=== PATIENT | female | born 1955 | race Caucasian/White ===

== ENCOUNTER 2017-01-13 13:19 | Emergency (ER) | payer MEDICARE, OTHER ==
[2017-01-13 13:26] VITALS: BMI 31.7
[2017-01-13 13:27] VITALS: BP 136/87; PULSE 115; RESP 18; TEMP 98; O2SAT 98
[2017-01-13] MEDS ORDERED: Sodium Chloride 0.9% 1,000 ML IV STA (13:51)
--- NOTE | 2017-01-13 13:54 | ED PDOC ---
HPI: General Adult Time Seen by Provider: 01/13/17 13:34 Chief Complaint (Nursing): Dizziness/Lightheaded Chief Complaint (Provider): Dizziness/Lightheaded History Per: Patient History/Exam Limitations: no limitations Onset/Duration Of Symptoms: Days (x4 days) Current Symptoms Are (Timing): Still Present Additional Complaint(s): 61 y/o female presents to the emergency department with a complaint of dizziness , diarrhea, headache, vomiting, shoulder pain bilaterally, loss of appetite, and trouble with urination x4 days. Patient states she was in [place] and came back on 01/09/2017 but forget her insulin over there and has not used insulin since. Reports she takes her insulin every night before bed and checks her blood sugar in the morning. Denies fever and dysuria. PMD: Dr. Karlene Rosen MD Past Medical History Reviewed: Historical Data, Nursing Documentation, Vital Signs Vital Signs: Last Vital Signs Temp 98.0 F 01/13/17 13:23 Pulse 115 H 01/13/17 13:23 Resp 18 01/13/17 13:23 BP 136/87 01/13/17 13:23 Pulse Ox 98 01/13/17 14:08 - Medical History PMH: COPD, Diabetes, HTN, Hypercholesterolemia, Seizures - Surgical History Surgical History: Cholecystectomy Other surgeries: Brain surgery and hysterectomy - Family History Family History: States: Unknown Family Hx - Social History Current smoker - smoking cessation education provided: Yes (Light smoker < 10 cigarettes a day) Alcohol: None Drugs: Denies - Home Medications Home Medications: Ambulatory Orders Medication Instructions Recorded Cetirizine Hydrochloride [Zyrtec] 10 mg PO DAILY 08/17/14 Fluticasone Nasal [Flonase] 2 spray HANSA DAILY 08/17/14 Lansoprazole [Prevacid] 30 mg PO DAILY 08/17/14 Metformin Hydrochloride/Manuela 1 tab PO BID 08/17/14 [Janumet 1000 mg-50 mg] Mometasone/Formoterol [Dulera] 2 puff IH BID 08/17/14 Montelukast Sodium [Singulair] 10 mg PO DAILY 08/17/14 Nortriptyline HCl [Nortriptyline] 20 mg PO BID 08/17/14 Nortriptyline Hydrochloride 50 mg PO HS 08/17/14 [Nortriptyline] OXcarbazepine [Trileptal] 300 mg PO DAILY 08/17/14 Tramadol HCl [Ultram] 50 mg PO BID PRN #15 tablet 03/13/16 - Allergies Allergies/Adverse Reactions: Allergies Allergy/AdvReac Type Severity Reaction Status Date / Time codeine Allergy RASH Verified 01/13/17 13:38 Review of Systems ROS Statement: Except As Marked, All Systems Reviewed And Found Negative Constitutional: Positive for: Other (Loss of appetite). Negative for: Fever Gastrointestinal: Positive for: Vomiting, Diarrhea Genitourinary Female: Positive for: Other (Trouble urinating). Negative for: Dysuria Musculoskeletal: Positive for: Shoulder Pain Neurological: Positive for: Headache, Dizziness Physical Exam - Reviewed Nursing Documentation Reviewed: Yes Vital Signs Reviewed: Yes - Physical Exam Appears: Positive for: Non-toxic, No Acute Distress Head Exam: Positive for: ATRAUMATIC, NORMAL INSPECTION, NORMOCEPHALIC Skin: Positive for: Normal Color, Warm, Dry ENT: Positive for: Normal ENT Inspection. Negative for: Nasal Congestion Neck: Positive for: Normal, Supple Cardiovascular/Chest: Positive for: Regular Rate, Rhythm. Negative for: Murmur Respiratory: Positive for: Normal Breath Sounds. Negative for: Accessory Muscle Use, Respiratory Distress Lymphatic: Positive for: Normal Exam. Negative for: Adenopathy Neurologic/Psych: Positive for: Alert, Oriented - Laboratory Results Result Diagrams: 01/13/17 14:10 01/13/17 14:10 - ECG O2 Sat by Pulse Oximetry: 98 (RA) Pulse Ox Interpretation: Normal Medical Decision Making Medical Decision Making: Time: 13:34 Initial impression: Dizziness and vomiting status post non-use of insulin Initial plan: --Basic Metabolic Panel --ED urine dipstick (POC) --CBC w. differential --Toradol 30 mg IV --Sodium Chloride 1,000 ml IV 1,000 mls/hr --IV Insertion --AccuCheck: 284 --Revaluation Scribe Attestation: Documented by Priya Guerin, acting as a scribe for Cady Bernstein MD. Provider Scribe Attestation: All medical record entries made by the Scribe were at my direction and personally dictated by me. I have reviewed the chart and agree that the record accurately reflects my personal performance of the history, physical exam, medical decision making, and the department course for this patient. I have also personally directed, reviewed, and agree with the discharge instructions and disposition. Disposition - Clinical Impression Clinical Impression: Diabetes - Patient ED Disposition Is Patient to be Admitted: No Doctor Will See Patient In The: Office Counseled Patient/Family Regarding: Diagnosis, Need For Followup, Rx Given - Disposition Referrals: Karlene Rosen MD [Family Provider] - Disposition: Routine/Home Disposition Time: 14:54 Condition: IMPROVED Instructions: Diabetes Mellitus Type 2 in Adults (ED) - POA Present On Arrival: None
[2017-01-13 14:29] LABS: BASO # 0.1 K/uL (0.0-0.2); BASO % 0.6 % (0.0-2.0); EOS # 0.2 K/uL (0.0-0.7); EOS % 2.2 % (0.0-4.0); HEMATOCRIT 45.6 % (34.0-47.0); LYMPH # 2.4 K/uL (1.0-4.3); LYMPH % 21.6 % (20.0-40.0); MEAN CELL VOLUME 85.2 fl (81.0-99.0); MEAN CORPUSCULAR HEMOGLOBIN 28.9 pg (27.0-31.0); MEAN CORPUSCULAR HGB CONC 33.9 g/dL (33.0-37.0); MEAN PLATELET VOLUME 9.8 fl (7.2-11.7); MONO # 0.6 K/uL (0.0-0.8); MONO % 5.6 % (0.0-10.0); NEUT # 7.7 K/uL (1.8-7.0); NRBC % 0.1 % (0.0-0.0); RED CELL DISTRIBUTION WIDTH 14.6 % (11.5-14.5)
[2017-01-13 14:46] LABS: BLOOD UREA NITROGEN 12 mg/dl (7-17); CALCIUM 9.3 mg/dL (8.4-10.2); CARBON DIOXIDE 24 mmol/L (22-30); CHLORIDE 103 mmol/L (98-107); GFR AFRICAN-AMERICAN > 60; GLUCOSE,RANDOM 262 mg/dL (65-105); POTASSIUM 4.4 MMOL/L (3.6-5.0); SODIUM 137 mmol/l (132-148)
== END 2017-01-13 15:17 | disposition home or self-care (01) ==
LOC: H.ER 13:19
DX: R42 Dizziness and giddiness (principal); R11.10 Vomiting, unspecified; E11.9 Type 2 diabetes mellitus without complications
CPT/HCPCS: 80048; 82948; 85025; 96374; 99285; J1885; J7040

== ENCOUNTER 2017-08-25 15:43 | Emergency (ER) | payer MEDICARE, OTHER ==
[2017-08-25 15:43] VITALS: BMI 31.7
[2017-08-25 15:55] VITALS: BP 131/87; PULSE 96; TEMP 98.1; O2SAT 97
[2017-08-25 16:14] VITALS: RESP 20
[2017-08-25] MEDS ORDERED: Albuterol-Ipratrop 3 mg / 0.5 (3 ml) UD IH STA ×2 (16:20→17:15)
--- NOTE | 2017-08-25 16:25 | ED PDOC ---
HPI: SOB/CHF/COPD Time Seen by Provider: 08/25/17 16:11 Chief Complaint (Nursing): Shortness Of Breath History Per: Patient Onset/Duration Of Symptoms: Other (2 weeks) Current Symptoms Are (Timing): Still Present Current Respiratory Medications: See Home Med List Severity: Mild Pain Scale Rating Of: 3 Associated Symptoms: Fever, Productive Cough Additional Complaint(s): SOB and cough productive white sputum x 2 weeks assoc with SOB. Denies chest pain or vomiting. No improvement with inhalers. Past Medical History Vital Signs: Last Vital Signs Temp 98.1 F 08/25/17 15:53 Pulse 96 H 08/25/17 15:53 Resp 20 08/25/17 16:13 BP 131/87 08/25/17 15:53 Pulse Ox 97 08/25/17 16:25 - Medical History PMH: COPD, Diabetes, HTN, Hypercholesterolemia, Seizures - Surgical History Surgical History: Cholecystectomy - Family History Family History: States: Unknown Family Hx - Home Medications Home Medications: Ambulatory Orders Medication Instructions Recorded Cetirizine Hydrochloride [Zyrtec] 10 mg PO DAILY 08/17/14 Fluticasone Nasal [Flonase] 2 spray HANSA DAILY 08/17/14 Lansoprazole [Prevacid] 30 mg PO DAILY 08/17/14 Metformin Hydrochloride/Manuela 1 tab PO BID 08/17/14 [Janumet 1000 mg-50 mg] Mometasone/Formoterol [Dulera] 2 puff IH BID 08/17/14 Montelukast Sodium [Singulair] 10 mg PO DAILY 08/17/14 Nortriptyline HCl [Nortriptyline] 20 mg PO BID 08/17/14 Nortriptyline Hydrochloride 50 mg PO HS 08/17/14 [Nortriptyline] OXcarbazepine [Trileptal] 300 mg PO DAILY 08/17/14 Tramadol HCl [Ultram] 50 mg PO BID PRN #15 tablet 03/13/16 Azithromycin [Zithromax] 250 mg PO DAILY #6 tab 08/25/17 predniSONE [predniSONE Tab] 10 mg PO TID #15 tab 08/25/17 - Allergies Allergies/Adverse Reactions: Allergies Allergy/AdvReac Type Severity Reaction Status Date / Time codeine Allergy RASH Verified 01/13/17 13:38 Review of Systems ROS Statement: Except As Marked, All Systems Reviewed And Found Negative ENT: Positive for: Throat Pain Respiratory: Positive for: Cough, Shortness of Breath. Negative for: Wheezing Physical Exam - Reviewed Nursing Documentation Reviewed: Yes Vital Signs Reviewed: Yes - Physical Exam Appears: Positive for: Non-toxic, No Acute Distress Head Exam: Positive for: ATRAUMATIC, NORMAL INSPECTION, NORMOCEPHALIC Skin: Positive for: Normal Color, Warm, DRY Eye Exam: Positive for: EOMI, Normal appearance, PERRL ENT: Positive for: Normal ENT Inspection Neck: Positive for: Normal, Painless ROM Cardiovascular/Chest: Positive for: Regular Rate, Rhythm Respiratory: Positive for: Decreased Breath Sounds, Rhonchi. Negative for: Respiratory Distress Gastrointestinal/Abdominal: Positive for: Normal Exam, Bowel Sounds, Soft Back: Positive for: Normal Inspection Extremity: Positive for: Normal ROM Neurologic/Psych: Positive for: Alert, Oriented - Laboratory Results Result Diagrams: 08/25/17 16:35 08/25/17 16:35 - ECG O2 Sat by Pulse Oximetry: 97 - Progress Re-evaluation Time: 18:09 Condition: Improved Disposition - Clinical Impression Clinical Impression: COPD exacerbation - Patient ED Disposition Is Patient to be Admitted: No Counseled Patient/Family Regarding: Studies Performed, Diagnosis, Need For Followup, Rx Given - Disposition Referrals: [facility] [Outside] Disposition: Routine/Home Disposition Time: 18:10 Condition: FAIR Prescriptions: Azithromycin [Zithromax] 250 mg PO DAILY #6 tab predniSONE [predniSONE Tab] 10 mg PO TID #15 tab Instructions: COPD (Chronic Obstructive Pulmonary Disease) (ED) Forms: [employer] (Irish)
[2017-08-25 16:45] LABS: BASO # 0.1 K/uL (0.0-0.2); BASO % 0.7 % (0.0-2.0); EOS # 0.2 K/uL (0.0-0.7); EOS % 1.8 % (0.0-4.0); HEMOGLOBIN 16.1 g/dL (12.0-16.0); LYMPH # 2.1 K/uL (1.0-4.3); LYMPH % 17.5 % (20.0-40.0); MEAN CELL VOLUME 87.5 fl (81.0-99.0); MEAN CORPUSCULAR HEMOGLOBIN 28.9 pg (27.0-31.0); MEAN PLATELET VOLUME 9.7 fl (7.2-11.7); MONO # 0.7 K/uL (0.0-0.8); MONO % 6.1 % (0.0-10.0); NEUT # 8.7 K/uL (1.8-7.0); NEUT % 73.9 % (50.0-75.0); NRBC % 0.4 % (0.0-0.0); RBC 5.56 Mil/uL (3.80-5.20); WHITE BLOOD COUNT 11.8 K/uL (4.8-10.8)
[2017-08-25 16:57] LABS: ALB/GLOB RATIO 1.1 (1.0-2.1); ALBUMIN 4.1 g/dL (3.5-5.0); ALT/SGPT 44 U/L (9-52); AST/SGOT 21 U/L (14-36); BLOOD UREA NITROGEN 9 mg/dl (7-17); CALCIUM 9.7 mg/dL (8.4-10.2); GFR AFRICAN-AMERICAN > 60; GFR NON-AFRICAN AMERICAN > 60
[2017-08-25] MEDS ORDERED: Albuterol-Ipratrop 3 mg / 0.5 (3 ml) UD ONE (17:38)
--- NOTE | 2017-08-25 19:43 | RAD ---
HISTORY: cough COMPARISON: Chest radiographs 06/22/2016 TECHNIQUE: Chest PA and lateral FINDINGS: LUNGS: No acute infiltrate identified bilaterally. Reticular markings and hyperinflation are reiterated compatible with COPD once again. PLEURA: No significant pleural effusion identified. No pneumothorax apparent. CARDIOVASCULAR: Attenuation of the peripheral arterial pattern may reflect pulmonary arterial hypertension. OSSEOUS STRUCTURES: No significant abnormalities. VISUALIZED UPPER ABDOMEN: Normal. OTHER FINDINGS: None. IMPRESSION: No acute interval findings. COPD pattern again evident which may include pulmonary arterial hypertension.
== END 2017-08-25 19:00 | disposition home or self-care (01) ==
LOC: H.ER 15:43
DX: J44.1 Chronic obstructive pulmonary disease with (acute) exacerbation (principal); E11.9 Type 2 diabetes mellitus without complications; E78.00 Pure hypercholesterolemia, unspecified; I10 Essential (primary) hypertension
CPT/HCPCS: 71046; 80053; 85025; 87804; 96374; 99282; J2930

== ENCOUNTER 2017-11-19 11:25 | Emergency (ER) | payer MEDICARE, OTHER ==
[2017-11-19 11:25] VITALS: BMI 31.7
[2017-11-19] MEDS ORDERED: Albuterol-Ipratrop 3 mg / 0.5 (3 ml) UD INH STA ×2 (12:18→12:19)
[2017-11-19] MEDS ORDERED: Albuterol-Ipratrop 3 mg / 0.5 (3 ml) UD ONE (12:26)
[2017-11-19 13:02] LABS: BASO # 0.1 K/uL (0.0-0.2); BASO % 0.5 % (0.0-2.0); EOS # 0.2 K/uL (0.0-0.7); EOS % 1.5 % (0.0-4.0); HEMOGLOBIN 16.2 g/dL (12.0-16.0); LYMPH # 1.6 K/uL (1.0-4.3); LYMPH % 14.3 % (20.0-40.0); MEAN CELL VOLUME 86.1 fl (81.0-99.0); MEAN CORPUSCULAR HEMOGLOBIN 28.8 pg (27.0-31.0); MEAN CORPUSCULAR HGB CONC 33.5 g/dL (33.0-37.0); MEAN PLATELET VOLUME 10.1 fl (7.2-11.7); MONO # 0.8 K/uL (0.0-0.8); NEUT # 8.6 K/uL (1.8-7.0); NEUT % 76.7 % (50.0-75.0); NRBC % 0.1 % (0.0-0.0); RBC 5.63 Mil/uL (3.80-5.20); RED CELL DISTRIBUTION WIDTH 14.4 % (11.5-14.5); WHITE BLOOD COUNT 11.2 K/uL (4.8-10.8)
[2017-11-19 13:37] LABS: ALB/GLOB RATIO 1.1 (1.0-2.1); ALBUMIN 3.8 g/dL (3.5-5.0); ALT/SGPT 28 U/L (9-52); AST/SGOT 19 U/L (14-36); BLOOD UREA NITROGEN 7 mg/dl (7-17); CALCIUM 9.3 mg/dL (8.4-10.2); GFR AFRICAN-AMERICAN > 60; GFR NON-AFRICAN AMERICAN > 60
--- NOTE | 2017-11-19 13:56 | ED PDOC ---
HPI: SOB/CHF/COPD Time Seen by Provider: 11/19/17 11:59 Chief Complaint (Nursing): Shortness Of Breath Chief Complaint (Provider): SOB - COPD History Per: Patient History/Exam Limitations: no limitations Onset/Duration Of Symptoms: Days (3) Associated Symptoms: denies: Fever, Chills, Sweating, Chest Pain, Bloody Cough, Productive Cough, Heart Racing, Leg/Calf Pain, Ankle/Leg Swelling, Dizziness, Light-headedness, Anxiety Additional Complaint(s): Pt states she his having SOB and wheezing. PT states it is her COPD and she thinks she may need a course of steroids. Pt states she is seen at [facility] and was told she needs oxygen at home in the near future. Pt denies fever/chills or chest pain. Past Medical History Reviewed: Historical Data, Nursing Documentation, Vital Signs Vital Signs: Last Vital Signs Temp 98 F 11/19/17 14:28 Pulse 78 11/19/17 14:28 Resp 19 11/19/17 14:28 BP 120/70 11/19/17 14:28 Pulse Ox 97 11/19/17 14:49 - Medical History PMH: COPD, Diabetes, HTN, Hypercholesterolemia, Seizures - Surgical History Surgical History: Cholecystectomy - Family History Family History: States: Unknown Family Hx - Living Arrangements Living Arrangements: With Family - Social History Current smoker - smoking cessation education provided: No - Home Medications Home Medications: Ambulatory Orders Medication Instructions Recorded Cetirizine Hydrochloride [Zyrtec] 10 mg PO DAILY 08/17/14 Fluticasone Nasal [Flonase] 2 spray HANSA DAILY 08/17/14 Lansoprazole [Prevacid] 30 mg PO DAILY 08/17/14 Metformin Hydrochloride/Manuela 1 tab PO BID 08/17/14 [Janumet 1000 mg-50 mg] Mometasone/Formoterol [Dulera] 2 puff IH BID 08/17/14 Montelukast Sodium [Singulair] 10 mg PO DAILY 08/17/14 Nortriptyline HCl [Nortriptyline] 20 mg PO BID 08/17/14 Nortriptyline Hydrochloride 50 mg PO HS 08/17/14 [Nortriptyline] OXcarbazepine [Trileptal] 300 mg PO DAILY 08/17/14 Tramadol HCl [Ultram] 50 mg PO BID PRN #15 tablet 03/13/16 Azithromycin [Zithromax] 250 mg PO DAILY #6 tab 08/25/17 predniSONE [predniSONE Tab] 10 mg PO TID #15 tab 08/25/17 Polymyxin/Trimethoprim Sulfate 1 drop XX Q6H 10 Days bottle 11/19/17 [Polytrim Ophth Soln] predniSONE [predniSONE Tab] 20 mg PO DAILY #12 tab 11/19/17 - Allergies Allergies/Adverse Reactions: Allergies Allergy/AdvReac Type Severity Reaction Status Date / Time codeine Allergy RASH Verified 01/13/17 13:38 Review of Systems ROS Statement: Except As Marked, All Systems Reviewed And Found Negative Constitutional: Negative for: Fever, Chills Respiratory: Positive for: Shortness of Breath, Wheezing Neurological: Negative for: Altered Mental Status, Headache Physical Exam - Reviewed Nursing Documentation Reviewed: Yes Vital Signs Reviewed: Yes - Physical Exam Appears: Positive for: Well, Non-toxic, No Acute Distress Head Exam: Positive for: ATRAUMATIC, NORMAL INSPECTION, NORMOCEPHALIC Skin: Positive for: Normal Color, Warm, DRY Eye Exam: Positive for: Normal appearance ENT: Positive for: Normal ENT Inspection Neck: Positive for: Normal, Painless ROM Cardiovascular/Chest: Positive for: Regular Rate, Rhythm Respiratory: Positive for: Wheezing. Negative for: Accessory Muscle Use, Respiratory Distress Gastrointestinal/Abdominal: Positive for: Normal Exam, Soft Back: Positive for: Normal Inspection Extremity: Positive for: Normal ROM Neurologic/Psych: Positive for: Alert, Oriented - Laboratory Results Result Diagrams: 11/19/17 12:50 11/19/17 12:50 - ECG O2 Sat by Pulse Oximetry: 97 Medical Decision Making Medical Decision Making: Pt reports feeling better on re-evaluation and is no longer wheezing. Disposition - Clinical Impression Clinical Impression: COPD (chronic obstructive pulmonary disease), Sty - Patient ED Disposition Is Patient to be Admitted: No Counseled Patient/Family Regarding: Need For Followup, Rx Given - Disposition Disposition: Routine/Home Disposition Time: 13:54 Condition: GOOD Prescriptions: Polymyxin/Trimethoprim Sulfate [Polytrim Ophth Soln] 1 drop XX Q6H 10 Days bottle predniSONE [predniSONE Tab] 20 mg PO DAILY #12 tab Instructions: Chronic Obstructive Pulmonary Disease (COPD), Including Emphysema Forms: [employer] (Paraguayan)
[2017-11-19 14:29] VITALS: BP 120/70; PULSE 78; RESP 19; TEMP 98
[2017-11-19 14:31] VITALS: O2SAT 97
--- NOTE | 2017-11-19 15:01 | RAD ---
HISTORY: Pneumonia COMPARISON: 08/25/2017 TECHNIQUE: Chest PA and lateral FINDINGS: LUNGS: No active pulmonary disease. PLEURA: No significant pleural effusion identified. No pneumothorax apparent. CARDIOVASCULAR: No radiographic findings to suggest acute or significant cardiovascular disease. OSSEOUS STRUCTURES: No significant abnormalities. VISUALIZED UPPER ABDOMEN: Normal. OTHER FINDINGS: None. IMPRESSION: No active disease. No significant interval change compared to the prior examination(s).
== END 2017-11-19 14:29 | disposition home or self-care (01) ==
LOC: H.ER 11:25
DX: J44.0 Chronic obstructive pulmonary disease with (acute) lower respiratory infection (principal); H00.029 Hordeolum internum unspecified eye, unspecified eyelid; E11.9 Type 2 diabetes mellitus without complications; I10 Essential (primary) hypertension; E78.00 Pure hypercholesterolemia, unspecified
CPT/HCPCS: 71046; 80053; 83735; 85025; 94640; 96374; 99284; J2930

== ENCOUNTER 2018-01-31 15:58 | Emergency (ER) | payer MEDICARE, OTHER ==
[2018-01-31 15:58] VITALS: BMI 31.7
[2018-01-31 16:15] VITALS: BP 120/82; PULSE 106; RESP 18; TEMP 98.4; O2SAT 97
--- NOTE | 2018-01-31 16:36 | ED PDOC ---
HPI: Skin/Bite Injury Time Seen by Provider: 01/31/18 16:28 Chief Complaint (Nursing): Abnormal Skin Integrity Chief Complaint (Provider): Abnormal Skin Integrity History Per: Patient History/Exam Limitations: no limitations Onset/Duration Of Symptoms: Days (x2) Current Symptoms Are (Timing): Still Present Additional Complaint(s): 62 year old female with medical history of hypertension, hypercholesterolemia and diabetes, presents to the emergency department with a complaint of skin rash to her upper arms bilaterally and left inner thigh. Patient states she underwent a sleep study at [facility] 2 nights ago and felt "biting" sensation. The next morning, she began seeing red spots to affected areas but was notified there were no bugs from the hospital. PMD: Karlene Rosen MD Past Medical History Reviewed: Historical Data, Nursing Documentation, Vital Signs Vital Signs: Last Vital Signs Temp 98.4 F 01/31/18 16:11 Pulse 106 H 01/31/18 16:11 Resp 18 01/31/18 16:11 BP 120/82 01/31/18 16:11 Pulse Ox 97 01/31/18 17:15 - Medical History PMH: COPD, Diabetes, HTN, Hypercholesterolemia, Seizures - Surgical History Surgical History: Cholecystectomy - Family History Family History: States: Unknown Family Hx - Home Medications Home Medications: Ambulatory Orders Medication Instructions Recorded Cetirizine Hydrochloride [Zyrtec] 10 mg PO DAILY 08/17/14 Fluticasone Nasal [Flonase] 2 spray HANSA DAILY 08/17/14 Lansoprazole [Prevacid] 30 mg PO DAILY 08/17/14 Metformin Hydrochloride/Manuela 1 tab PO BID 08/17/14 [Janumet 1000 mg-50 mg] Mometasone/Formoterol [Dulera] 2 puff IH BID 08/17/14 Montelukast Sodium [Singulair] 10 mg PO DAILY 08/17/14 Nortriptyline HCl [Nortriptyline] 20 mg PO BID 08/17/14 Nortriptyline Hydrochloride 50 mg PO HS 08/17/14 [Nortriptyline] OXcarbazepine [Trileptal] 300 mg PO DAILY 08/17/14 Tramadol HCl [Ultram] 50 mg PO BID PRN #15 tablet 03/13/16 Azithromycin [Zithromax] 250 mg PO DAILY #6 tab 08/25/17 predniSONE [predniSONE Tab] 10 mg PO TID #15 tab 08/25/17 Polymyxin/Trimethoprim Sulfate 1 drop XX Q6H 10 Days bottle 11/19/17 [Polytrim Ophth Soln] predniSONE [predniSONE Tab] 20 mg PO DAILY #12 tab 11/19/17 Cephalexin [Keflex] 500 mg PO BID #14 capsule 01/31/18 DiphenhydrAMINE 1% [Benadryl 1 / TP BID #1 tube 01/31/18 Maximum Strength 1%] - Allergies Allergies/Adverse Reactions: Allergies Allergy/AdvReac Type Severity Reaction Status Date / Time codeine Allergy RASH Verified 01/31/18 16:11 Review of Systems ROS Statement: Except As Marked, All Systems Reviewed And Found Negative Skin: Positive for: Rash (bilateral arms; left inner thigh) Physical Exam - Reviewed Nursing Documentation Reviewed: Yes Vital Signs Reviewed: Yes - Physical Exam Appears: Positive for: Non-toxic, No Acute Distress Head Exam: Positive for: ATRAUMATIC, NORMAL INSPECTION, NORMOCEPHALIC Skin: Positive for: Rash (right upper arm, left upper arm with surrounding erythema and left inner thigh) Eye Exam: Positive for: Normal appearance. Negative for: Periorbital swelling ENT: Positive for: Normal ENT Inspection. Negative for: Pharyngeal Erythema Neck: Positive for: Normal, Painless ROM, Supple Cardiovascular/Chest: Positive for: Regular Rate, Rhythm Respiratory: Positive for: Normal Breath Sounds. Negative for: Respiratory Distress Back: Positive for: Normal Inspection Extremity: Positive for: Normal ROM (upper/lower) Neurologic/Psych: Positive for: Alert (x3), Oriented. Negative for: Motor/ Sensory Deficits - ECG O2 Sat by Pulse Oximetry: 97 (RA) Pulse Ox Interpretation: Normal Medical Decision Making Medical Decision Making: Time: 1635 --Upon provider evaluation, patient is medically stable and requires no further treatment in the ED at this time. Patient will be discharged home with Rx for Keflex 500mg and Benadryl 1% topical cream. Counseling was provided and all questions were answered regarding diagnosis. There is agreement to discharge plan. Return if symptoms persist or worsen. Clinical Impression: Insect Bites Scribe Attestation: Documented by Bernadette Pham, acting as a scribe for Zully Gan PA-C. Provider Scribe Attestation: All medical record entries made by the Scribe were at my direction and personally dictated by me. I have reviewed the chart and agree that the record accurately reflects my personal performance of the history, physical exam, medical decision making, and the department course for this patient. I have also personally directed, reviewed, and agree with the discharge instructions and disposition. Disposition - Clinical Impression Clinical Impression: Insect bites - Patient ED Disposition Is Patient to be Admitted: No Counseled Patient/Family Regarding: Diagnosis, Need For Followup, Rx Given - Disposition Disposition: Routine/Home Disposition Time: 16:36 Condition: STABLE Prescriptions: Cephalexin [Keflex] 500 mg PO BID #14 capsule DiphenhydrAMINE 1% [Benadryl Maximum Strength 1%] 1 / TP BID #1 tube Instructions: Insect Bites and Stings Forms: [employer] (Japanese)
== END 2018-01-31 16:47 | disposition home or self-care (01) ==
LOC: H.ER 15:58
DX: T07.XXXA Unspecified multiple injuries, initial encounter (principal); W57.XXXA Bitten or stung by nonvenomous insect and other nonvenomous arthropods, initial encounter; Y92.89 Other specified places as the place of occurrence of the external cause; E11.9 Type 2 diabetes mellitus without complications; E78.00 Pure hypercholesterolemia, unspecified; I10 Essential (primary) hypertension; J44.9 Chronic obstructive pulmonary disease, unspecified

== ENCOUNTER 2018-08-08 11:02 | Emergency (ER) | payer MEDICARE, OTHER ==
[2018-08-08 11:02] VITALS: BMI 31.7
[2018-08-08] MEDS ORDERED: Albuterol 0.083% Inhal Sol (2.5 mg/3 mL) UD INH ONE (12:52)
--- NOTE | 2018-08-08 12:55 | ED PDOC ---
History of Present Illness History of Present Illness: 63 y/o female with history of diabetes and COPD presents to ER for evaluation of cough onset 5 days. Patient reports cough is productive of yellow phlegm and states she gets rib pain when coughing. PMD: Karlene Rosen ([facility]) HPI: Influenza Time Seen by Provider: 08/08/18 11:39 Chief Complaint: Cough, Cold, Congestion Chief Complaint (Provider): Cough, Cold, Congestion History Per: Patient Exam Limitations: no limitations Onset/Duration Of Symptoms: Days (x5) Symptoms include: cough Past Medical History Reviewed: Historical Data, Nursing Documentation, Vital Signs Vital Signs: Last Vital Signs Temp 97.9 F 08/08/18 11:25 Pulse 99 H 08/08/18 11:25 Resp 18 08/08/18 11:25 BP 134/75 08/08/18 11:25 Pulse Ox 100 08/08/18 11:25 - Medical History PMH: Asthma, COPD, Depression, Diabetes, Gastritis, HTN, Hypercholesterolemia, Migraine, Seizures, TIA Denies: HIV, Chronic Kidney Disease - Surgical History Surgical History: Cholecystectomy, Tonsillectomy - Family History Family History: States: Unknown Family Hx - Social History Current smoker - smoking cessation education provided: No Alcohol: None Drugs: Denies - Home Medications Home Medications: Ambulatory Orders Medication Instructions Recorded Cetirizine Hydrochloride [Zyrtec] 10 mg PO DAILY 08/17/14 Fluticasone Nasal [Flonase] 2 spray HANSA DAILY 08/17/14 Lansoprazole [Prevacid] 30 mg PO DAILY 08/17/14 Metformin Hydrochloride/Manuela 1 tab PO BID 08/17/14 [Janumet 1000 mg-50 mg] Mometasone/Formoterol [Dulera] 2 puff IH BID 08/17/14 Montelukast Sodium [Singulair] 10 mg PO DAILY 08/17/14 Nortriptyline HCl [Nortriptyline] 20 mg PO BID 08/17/14 Nortriptyline Hydrochloride 50 mg PO HS 08/17/14 [Nortriptyline] OXcarbazepine [Trileptal] 300 mg PO DAILY 08/17/14 Tramadol HCl [Ultram] 50 mg PO BID PRN #15 tablet 03/13/16 Azithromycin [Zithromax] 250 mg PO DAILY #6 tab 08/25/17 RX: predniSONE [predniSONE Tab] 10 mg PO TID #15 tab 08/25/17 Polymyxin/Trimethoprim Sulfate 1 drop XX Q6H 10 Days bottle 11/19/17 [Polytrim Ophth Soln] RX: predniSONE [predniSONE Tab] 20 mg PO DAILY #12 tab 11/19/17 RX: Albuterol Sulfate [Proair Hfa] 2 puff IH Q6 PRN 11/21/17 RX: Atorvastatin [Lipitor] 20 mg PO HS 11/21/17 RX: Glipizide [Glipizide ER] 10 mg PO BID 11/21/17 RX: Insulin Aspart, Recombinant 4 unit SC AC 11/21/17 [Novolog] RX: Insulin Glargine,Hum.rec.anlog 46 unit SC HS 11/21/17 [Lantus] RX: Lansoprazole [Prevacid] 30 mg PO DAILY 11/21/17 RX: MetFORMIN [glucoPHAGE] 1,000 mg PO BID 11/21/17 RX: Mometasone/Formoterol [Dulera 2 puff IH Q12 11/21/17 200 Mcg/5 Mcg Inhaler] RX: Montelukast [Singulair] 10 mg PO DAILY 11/21/17 RX: Nortriptyline [Pamelor] 10 mg PO BID 11/21/17 RX: Nortriptyline [Pamelor] 50 mg PO HS 11/21/17 RX: Tiotropium [Spiriva] 18 mcg IH DAILY 11/21/17 RX: Atorvastatin [Lipitor] 20 mg PO DAILY tab 11/27/17 RX: GlipiZIDE [Glucotrol] 10 mg PO BIDAC tab 11/27/17 RX: Insulin Detemir [Levemir] 48 units SC HS vial 11/27/17 RX: MetFORMIN [glucoPHAGE] 1,000 mg PO BIDWM tab 11/27/17 RX: Nicotine 21 mg/24 hr [Nicoderm 1 patch TD DAILY patch 11/27/17 Cq] RX: Nortriptyline [Pamelor] 10 mg PO BID cap 11/27/17 RX: Sulfamethoxazole/Trimethoprim 1 tab PO Q12 #10 tab 11/27/17 [Bactrim DS Tab] RX: predniSONE [predniSONE Tab] 40 mg PO DAILY #5 tab 11/27/17 Cephalexin [Keflex] 500 mg PO BID #14 capsule 01/31/18 RX: DiphenhydrAMINE 1% [Benadryl 1 / TP BID #1 tube 01/31/18 Maximum Strength 1%] Azithromycin [Zithromax] 250 mg PO DAILY #6 tab 08/08/18 RX: Albuterol HFA [Ventolin HFA 90 1 - 2 puff IH Q4H PRN #1 bottle 08/08/18 mcg/actuation (8 g)] predniSONE [Prednisone] 40 mg PO DAILY #8 tab 08/08/18 - Allergies Allergies/Adverse Reactions: Allergies Allergy/AdvReac Type Severity Reaction Status Date / Time codeine Allergy RASH Verified 01/31/18 16:11 Review of Systems ROS Statement: Except As Marked, All Systems Reviewed And Found Negative Respiratory: Positive for: Cough Musculoskeletal: Positive for: Other (Rib pain with cough) Physical Exam - Reviewed Nursing Documentation Reviewed: Yes Vital Signs Reviewed: Yes - Physical Exam Appears: Positive for: Non-toxic, No Acute Distress Head Exam: Positive for: ATRAUMATIC, NORMOCEPHALIC Skin: Positive for: Normal Color, Warm, Dry ENT: Positive for: Normal ENT Inspection Neck: Positive for: Normal, Painless ROM, Supple Cardiovascular/Chest: Positive for: Regular Rate, Rhythm. Negative for: Murmur Respiratory: Positive for: Decreased Breath Sounds (bilaterally) Gastrointestinal/Abdominal: Positive for: Normal Exam, Soft. Negative for: Tenderness Back: Positive for: Normal Inspection. Negative for: L CVA Tenderness, R CVA Tenderness Extremity: Positive for: Normal ROM. Negative for: Tenderness, Pedal Edema Neurologic/Psych: Positive for: Alert, Oriented (x3), Other (Speaking full sentences) Medical Decision Making Medical Decision Making: Time: 1251 Initial Plan: cough for 5 days rule out flu and pneumonia --CMP --CBC --Chest x-ray --Albuterol 2.5 mg INH --Peak flow pre/post treatment --Influenza A B 1331 CXR FINDINGS: LUNGS: No active pulmonary disease. PLEURA: No significant pleural effusion identified. No pneumothorax apparent. CARDIOVASCULAR: No radiographic findings to suggest acute or significant cardiovascular disease. Atherosclerotic calcifications identified primarily aortic arch. OSSEOUS STRUCTURES: No significant abnormalities. VISUALIZED UPPER ABDOMEN: Normal. OTHER FINDINGS: None. IMPRESSION: No active disease. No significant interval change compared to the prior examination(s). 1436 CXR reviewed and shows no active disease. Flu is negative and patient is stable for discharge. Scribe Attestation: Documented by Adriane Yip, acting as a scribe for Elly Villatoro MD. Provider Scribe Attestation: All medical record entries made by the Scribe were at my direction and personally dictated by me. I have reviewed the chart and agree that the record accurately reflects my personal performance of the history, physical exam, med ical decision making, and the department course for this patient. I have also personally directed, reviewed, and agree with the discharge instructions and disposition. Scribe Attestation: Documented by Aissatou Rhodes, acting as a scribe for Elly Villatoro MD. Provider Scribe Attestation: All medical record entries made by the Scribe were at my direction and personally dictated by me. I have reviewed the chart and agree that the record accurately reflects my personal performance of the history, physical exam, medical decision making, and the department course for this patient. I have also personally directed, reviewed, and agree with the discharge instructions and disposition. - Laboratory Results Result Diagrams: 08/08/18 13:05 08/08/18 13:05 - ECG O2 Sat by Pulse Oximetry: 100 (RA) Pulse Ox Interpretation: Normal Disposition - Clinical Impression Clinical Impression: Bronchitis, COPD exacerbation - Patient ED Disposition Is Patient to be Admitted: No Counseled Patient/Family Regarding: Studies Performed, Diagnosis, Need For Followup - Disposition Disposition: Routine/Home Disposition Time: 14:36 Condition: IMPROVED Additional Instructions: follow up with your primary doctor in the clinic in 2 days return to the ED with any worsening or concerning symptoms Prescriptions: RX: Albuterol HFA [Ventolin HFA 90 mcg/actuation (8 g)] 1 - 2 puff IH Q4H PRN #1 bottle PRN Reason: Wheezing Azithromycin [Zithromax] 250 mg PO DAILY #6 tab predniSONE [Prednisone] 40 mg PO DAILY #8 tab Instructions: Acute Bronchitis, Exacerbation of COPD (DC) Forms: [employer] (Setswana)
[2018-08-08 13:22] LABS: BASO % 0.5 % (0.0-2.0); EOS % 0.5 % (0.0-4.0); HEMOGLOBIN 14.2 g/dL (12.0-16.0); LYMPH # 1.2 K/uL (1.0-4.3); LYMPH % 14.1 % (20.0-40.0); MEAN CELL VOLUME 84.4 fl (81.0-99.0); MEAN CORPUSCULAR HEMOGLOBIN 27.9 pg (27.0-31.0); MEAN PLATELET VOLUME 9.8 fl (7.2-11.7); MONO # 0.8 K/uL (0.0-0.8); MONO % 9.7 % (0.0-10.0); NEUT # 6.4 K/uL (1.8-7.0); NEUT % 75.2 % (50.0-75.0); NRBC % 0.1 % (0.0-0.0); RBC 5.11 Mil/uL (3.80-5.20); RED CELL DISTRIBUTION WIDTH 15.3 % (11.5-14.5); WHITE BLOOD COUNT 8.5 K/uL (4.8-10.8)
--- NOTE | 2018-08-08 13:34 | RAD ---
Date of service: 08/08/2018 HISTORY: Cough. COMPARISON: 11/22/2017 TECHNIQUE: Chest PA and lateral FINDINGS: LUNGS: No active pulmonary disease. PLEURA: No significant pleural effusion identified. No pneumothorax apparent. CARDIOVASCULAR: No radiographic findings to suggest acute or significant cardiovascular disease. Atherosclerotic calcifications identified primarily aortic arch. OSSEOUS STRUCTURES: No significant abnormalities. VISUALIZED UPPER ABDOMEN: Normal. OTHER FINDINGS: None. IMPRESSION: No active disease. No significant interval change compared to the prior examination(s).
[2018-08-08 13:35] LABS: ALB/GLOB RATIO 1.2 (1.0-2.1); ALBUMIN 4.2 g/dL (3.5-5.0); ALT/SGPT 30 U/L (9-52); AST/SGOT 32 U/L (14-36); BLOOD UREA NITROGEN 9 mg/dl (7-17); CALCIUM 9.2 mg/dL (8.4-10.2); GFR NON-AFRICAN AMERICAN > 60
[2018-08-08] MEDS ORDERED: Insulin Regular 100 units/ml SC STA (14:36)
[2018-08-08] MEDS ORDERED: Insulin Regular 100 units/ml ONE (14:53)
[2018-08-08] MEDS ORDERED: Albuterol 0.083% Inhal Sol (2.5 mg/3 mL) UD ONE (14:54)
[2018-08-08 15:34] VITALS: BP 137/74; PULSE 104; RESP 17; TEMP 98.2
[2018-08-10 21:09] VITALS: O2SAT 100
== END 2018-08-08 15:05 | disposition home or self-care (01) ==
LOC: H.ER 11:02
DX: J44.1 Chronic obstructive pulmonary disease with (acute) exacerbation (principal); J40 Bronchitis, not specified as acute or chronic; E11.9 Type 2 diabetes mellitus without complications; E78.00 Pure hypercholesterolemia, unspecified; I10 Essential (primary) hypertension; Z79.4 Long term (current) use of insulin; Z86.73 Personal history of transient ischemic attack (TIA), and cerebral infarction without residual deficits

== ENCOUNTER 2018-11-04 14:44 | Inpatient (IN) | payer MEDICARE, OTHER ==
[2018-11-04] MEDS ORDERED: Albuterol-Ipratrop 3 mg / 0.5 (3 ml) UD INH STA ×2 (15:23→16:57)
[2018-11-04] MEDS ORDERED: Albuterol-Ipratrop 3 mg / 0.5 (3 ml) UD ONE ×2 (16:00→19:29)
--- NOTE | 2018-11-04 16:13 | RAD ---
Date of service: 11/04/2018 HISTORY: chest pain/ r/o infiltrate COMPARISON: 08/08/2018 TECHNIQUE: Chest PA and lateral views FINDINGS: LUNGS: No active pulmonary disease. PLEURA: No significant pleural effusion identified. No pneumothorax apparent. CARDIOVASCULAR: No aortic atherosclerotic calcification present. Normal cardiac size. No pulmonary vascular congestion. OSSEOUS STRUCTURES: No significant abnormalities. VISUALIZED UPPER ABDOMEN: Normal. OTHER FINDINGS: None. IMPRESSION: No active disease.
[2018-11-04 16:57] LABS: BASO # 0.1 K/uL (0.0-0.2); BASO % 0.3 % (0.0-2.0); HEMOGLOBIN 14.2 g/dL (12.0-16.0); LYMPH # 0.9 K/uL (1.0-4.3); LYMPH % 5.7 % (20.0-40.0); MEAN CELL VOLUME 86.3 fl (81.0-99.0); MEAN CORPUSCULAR HEMOGLOBIN 28.2 pg (27.0-31.0); MEAN CORPUSCULAR HGB CONC 32.7 g/dL (33.0-37.0); MEAN PLATELET VOLUME 10.1 fl (7.2-11.7); MONO # 0.5 K/uL (0.0-0.8); MONO % 2.7 % (0.0-10.0); NEUT # 15.1 K/uL (1.8-7.0); NEUT % 91.3 % (50.0-75.0); NRBC % 0.2 % (0.0-0.0); PLATELET COUNT 278 K/uL (130-400); RBC 5.02 Mil/uL (3.80-5.20); RED CELL DISTRIBUTION WIDTH 15.4 % (11.5-14.5); WHITE BLOOD COUNT 16.6 K/uL (4.8-10.8)
[2018-11-04 17:03] LABS: ALB/GLOB RATIO 1.2 (1.0-2.1); ALBUMIN 4.1 g/dL (3.5-5.0); ALT/SGPT 31 U/L (9-52); AST/SGOT 28 U/L (14-36); BLOOD UREA NITROGEN 14 mg/dl (7-17); CALCIUM 9.4 mg/dL (8.4-10.2); GFR NON-AFRICAN AMERICAN > 60
[2018-11-04] MEDS ORDERED: Insulin Regular 100 units/ml IVP ONE (17:17)
[2018-11-04] MEDS ORDERED: Sodium Chloride 0.9% 1,000 ML IV STA (17:17)
--- NOTE | 2018-11-04 17:20 | ED PDOC ---
HPI: SOB/CHF/COPD Time Seen by Provider: 11/04/18 15:03 Chief Complaint (Nursing): Shortness Of Breath Chief Complaint (Provider): im still short of breath History Per: Patient History/Exam Limitations: no limitations Onset/Duration Of Symptoms: Days (7), Gradual Current Symptoms Are (Timing): Still Present Initiating Event: Upper Respiratory Illness Exacerbating Factor(s): Exertion, Coughing Current Respiratory Medications: See Home Med List Severity: Moderate Additional Complaint(s): 63yo female hx COPD, DM, presents c/o SOB, cough, malaise and generalized weakn ess ongoing for about a week now. Already taking oral prednisone and albuterol q4h without improvement. Notes polyuria and polydipsia also. Denies fever. PMD Luis Alberto Rosen Past Medical History Reviewed: Historical Data, Nursing Documentation, Vital Signs Vital Signs: Last Vital Signs Temp 97.9 F 11/04/18 14:57 Pulse 103 H 11/04/18 14:57 Resp 22 11/04/18 16:01 BP 140/78 11/04/18 14:57 Pulse Ox 96 11/04/18 16:01 - Medical History PMH: Anxiety, Asthma, COPD, Depression, Diabetes, Gastritis, HTN, Hypercholesterolemia, Migraine, Seizures, TIA Denies: HIV, Chronic Kidney Disease - Surgical History Surgical History: Cholecystectomy, Tonsillectomy - Family History Family History: States: Unknown Family Hx - Social History Current smoker - smoking cessation education provided: No - Home Medications Home Medications: Ambulatory Orders Medication Instructions Recorded Cetirizine Hydrochloride [Zyrtec] 10 mg PO DAILY 08/17/14 Fluticasone Nasal [Flonase] 2 spray HANSA DAILY 08/17/14 Lansoprazole [Prevacid] 30 mg PO DAILY 08/17/14 Metformin Hydrochloride/Manuela 1 tab PO BID 08/17/14 [Janumet 1000 mg-50 mg] Mometasone/Formoterol [Dulera] 2 puff IH BID 08/17/14 Montelukast Sodium [Singulair] 10 mg PO DAILY 08/17/14 Nortriptyline HCl [Nortriptyline] 20 mg PO BID 08/17/14 Nortriptyline Hydrochloride 50 mg PO HS 08/17/14 [Nortriptyline] OXcarbazepine [Trileptal] 300 mg PO DAILY 08/17/14 Tramadol HCl [Ultram] 50 mg PO BID PRN #15 tablet 03/13/16 Azithromycin [Zithromax] 250 mg PO DAILY #6 tab 08/25/17 predniSONE [predniSONE Tab] 10 mg PO TID #15 tab 08/25/17 Polymyxin/Trimethoprim Sulfate 1 drop XX Q6H 10 Days bottle 11/19/17 [Polytrim Ophth Soln] predniSONE [predniSONE Tab] 20 mg PO DAILY #12 tab 11/19/17 Albuterol Sulfate [Proair Hfa] 2 puff IH Q6 PRN 11/21/17 Atorvastatin [Lipitor] 20 mg PO HS 11/21/17 Glipizide [Glipizide ER] 10 mg PO BID 11/21/17 Insulin Aspart, Recombinant 4 unit SC AC 11/21/17 [Novolog] Insulin Glargine,Hum.rec.anlog 46 unit SC HS 11/21/17 [Lantus] Lansoprazole [Prevacid] 30 mg PO DAILY 11/21/17 MetFORMIN [glucoPHAGE] 1,000 mg PO BID 11/21/17 Mometasone/Formoterol [Dulera 200 2 puff IH Q12 11/21/17 Mcg/5 Mcg Inhaler] Montelukast [Singulair] 10 mg PO DAILY 11/21/17 Nortriptyline [Pamelor] 10 mg PO BID 11/21/17 Nortriptyline [Pamelor] 50 mg PO HS 11/21/17 Tiotropium [Spiriva] 18 mcg IH DAILY 11/21/17 Atorvastatin [Lipitor] 20 mg PO DAILY tab 11/27/17 GlipiZIDE [Glucotrol] 10 mg PO BIDAC tab 11/27/17 Insulin Detemir [Levemir] 48 units SC HS vial 11/27/17 MetFORMIN [glucoPHAGE] 1,000 mg PO BIDWM tab 11/27/17 Nicotine 21 mg/24 hr [Nicoderm Cq] 1 patch TD DAILY patch 11/27/17 Nortriptyline [Pamelor] 10 mg PO BID cap 11/27/17 Sulfamethoxazole/Trimethoprim 1 tab PO Q12 #10 tab 11/27/17 [Bactrim DS Tab] predniSONE [predniSONE Tab] 40 mg PO DAILY #5 tab 11/27/17 Cephalexin [Keflex] 500 mg PO BID #14 capsule 01/31/18 DiphenhydrAMINE 1% [Benadryl 1 / TP BID #1 tube 01/31/18 Maximum Strength 1%] Albuterol HFA [Ventolin HFA 90 1 - 2 puff IH Q4H PRN #1 bottle 08/08/18 mcg/actuation (8 g)] Azithromycin [Zithromax] 250 mg PO DAILY #6 tab 08/08/18 predniSONE [Prednisone] 40 mg PO DAILY #8 tab 08/08/18 - Allergies Allergies/Adverse Reactions: Allergies Allergy/AdvReac Type Severity Reaction Status Date / Time codeine Allergy RASH Verified 11/04/18 14:48 Review of Systems Constitutional: Positive for: Malaise. Negative for: Fever ENT: Negative for: Throat Pain Cardiovascular: Negative for: Chest Pain Respiratory: Positive for: Cough, Shortness of Breath, Pleuritic Pain. Negative for: Hemoptysis Gastrointestinal: Negative for: Abdominal Pain Genitourinary Female: Negative for: Dysuria Musculoskeletal: Negative for: Neck Pain Skin: Negative for: Rash, Lesions, Jaundice Neurological: Positive for: Dizziness. Negative for: Weakness, Numbness, Headache Psych: Positive for: Anxiety. Negative for: Suicidal ideation Physical Exam - Reviewed Nursing Documentation Reviewed: Yes Vital Signs Reviewed: Yes - Physical Exam Appears: Positive for: Non-toxic, Uncomfortable Head Exam: Positive for: ATRAUMATIC, NORMAL INSPECTION, NORMOCEPHALIC Skin: Positive for: Normal Color, Warm, DRY Eye Exam: Positive for: EOMI, Normal appearance, PERRL ENT: Positive for: Normal ENT Inspection Neck: Positive for: Normal, Painless ROM Cardiovascular/Chest: Positive for: Regular Rate, Rhythm Respiratory: Positive for: Decreased Breath Sounds, Wheezing. Negative for: Respiratory Distress Pulses-Radial (L): 2+ Pulses-Radial (R): 2+ Gastrointestinal/Abdominal: Positive for: Soft. Negative for: Tenderness, Guarding Back: Positive for: Normal Inspection Extremity: Positive for: Normal ROM Neurological/Psych: Positive for: Awake, Alert, Normal Tone - Laboratory Results Result Diagrams: 11/04/18 16:39 11/04/18 16:39 Lab Results: Total Bilirubin 0.3 mg/dl (0.2-1.3) 11/04/18 16:39 AST 28 U/L (14-36) 11/04/18 16:39 ALT 31 U/L (9-52) 11/04/18 16:39 Alkaline Phosphatase 97 U/L (38-126) 11/04/18 16:39 Total Protein 7.5 G/DL (6.3-8.2) 11/04/18 16:39 Albumin 4.1 g/dL (3.5-5.0) 11/04/18 16:39 Globulin 3.4 gm/dL (2.2-3.9) 11/04/18 16:39 Albumin/Globulin Ratio 1.2 (1.0-2.1) 11/04/18 16:39 - ECG O2 Sat by Pulse Oximetry: 96 Medical Decision Making Medical Decision Making: workup for COPD exacerbation with failure of outpatient therapy labs reviewed, +hyperglycemia, IVF and insulin therapy initiated Duonebs and solumedrol also initiated CXR reviewed, per radiologist no acute infiltrate 515p remains w wheeze, SOB on exertion, now with hyperglycemia and failure of outpatient therapy admit Dr Rosen d/w Resident Rogelio 520p Disposition - Clinical Impression Clinical Impression: COPD exacerbation, Hyperglycemia - Patient ED Disposition Is Patient to be Admitted: Yes - Disposition Disposition Time: 17:15 Condition: FAIR - Pt Status Changed To: Hospital Disposition Of: Inpatient - Admit Certification Admit to Inpatient:: After my assessment, the patient will require hospitalization for at least two midnights. This is because of the severity of symptoms shown, intensity of services needed, and/or the medical risk in this patient being treated as an outpatient.
[2018-11-04] MEDS ORDERED: Glucagon Recombinant 1 mg Inj IM PRN (18:46)
[2018-11-04] MEDS ORDERED: Dextrose 50% SYRINGE Inj (50 ml) IV PRN (18:46)
--- NOTE | 2018-11-04 18:49 | CP.PCM.HP ---
History of Present Illness - History of Present Illness History of Present Illness: This is 62 y/o F with PMH of COPD, Asthma, GERD, IDDM-II, Migraine, seizure disorder and cerebral aneurism admitted to [facility] for eval and treatment of COPD exacerbation and hyperglycemia. Patient reports one week history of progressive ly worsening shortness of breath, cough, congestion and sputum production. Patient reports her symptoms are non responsive to out patient management such as Albuterol and Steroid PO. Patient states her SOB getting worse which makes very difficult for her to be active at home, + Worsening nonbloody yellow sputum production and coughing. + chest tightness, blurred vision , weakness and dizziness associated with her coughing and SOB. Denies any chest pain, abdominal pain, falls, urinary problem or weakness. PMD: Dr Karlene Rosen PMH: COPD, asthma, DM, GERD, trigeminal neuralgia, H/O cerebral aneurysm, migraine, solitary pulmonary nodule, Seizure disorder. FH: [place] (parents), mother from [place], [place](father) MEDS: As per EMR Allergies: codeine PSH: Craniotomy, Thoracotomy, cholecystectomy, Hysterectomy SH: former smoker, denies current smoking, alcohol or drug use ED Course: VS: Afebrile, PP 103, 140/78, SPo2 96% RA CBC: Significant for wbc 16.6 CMP: Sig for BS 405 EKG: Sinus Tachy CXR: No active disease Negative influenza S/p Duoneb x 2 S/p Insulin 4 U S/p Methylpred 125mg IV IVF 1 L Bolus Present on Admission - Present on Admission Any Indicators Present on Admission: No History of DVT/PE: No Review of Systems - Constitutional Constitutional: absent: Chills, Fever, Lethargy, Night Sweats - EENT Eyes: Blurred Vision Nose/Mouth/Throat: absent: Nasal Discharge - Cardiovascular Cardiovascular: absent: Chest Pain, Palpitations - Respiratory Respiratory: Cough, Dyspnea, Dyspnea on Exertion, Wheezing. absent: Hemoptysis - Gastrointestinal Gastrointestinal: absent: Abdominal Pain - Genitourinary Genitourinary: absent: Change in Urinary Stream - Neurological Neurological: Dizziness. absent: Abnormal Gait, Numbness, Focal Weakness, Paresthesias, Sensory Deficit, Syncope, Tingling Past Patient History - Past Medical History & Family History Past Medical History?: Yes - Past Social History Smoking Status: Former Smoker - CARDIAC Hx Hypercholesterolemia: Yes Hx Hypertension: Yes - PULMONARY Hx Asthma: Yes Hx Chronic Obstructive Pulmonary Disease (COPD): Yes - NEUROLOGICAL Hx Migraine: Yes Hx Seizures: Yes Hx Transient Ischemic Attacks (TIA): Yes - HEENT Hx HEENT Problems: Yes Other/Comment: Eye infection last Sunday - RENAL Hx Chronic Kidney Disease: No - ENDOCRINE/METABOLIC Hx Endocrine Disorders: Yes Hx Diabetes Mellitus Type 2: Yes - HEMATOLOGICAL/ONCOLOGICAL Hx Human Immunodeficiency Virus (HIV): No - INTEGUMENTARY Hx Dermatological Problems: No - MUSCULOSKELETAL/RHEUMATOLOGICAL Hx Musculoskeletal Disorders: Yes Hx Falls: Yes - GASTROINTESTINAL Hx Gastritis: Yes - GENITOURINARY/GYNECOLOGICAL Hx Genitourinary Disorders: No - PSYCHIATRIC Hx Anxiety: Yes Hx Depression: Yes - SURGICAL HISTORY Hx Cholecystectomy: Yes Hx Tonsillectomy: Yes - ANESTHESIA Hx Anesthesia: Yes Hx Anesthesia Reactions: No Hx Malignant Hyperthermia: No Meds Allergies/Adverse Reactions: Allergies Allergy/AdvReac Type Severity Reaction Status Date / Time codeine Allergy RASH Verified 11/04/18 14:48 Physical Exam - Constitutional Appears: No Acute Distress - Head Exam Head Exam: ATRAUMATIC, NORMAL INSPECTION, NORMOCEPHALIC - Eye Exam Eye Exam: EOMI, Normal appearance, PERRL Pupil Exam: NORMAL ACCOMODATION - ENT Exam ENT Exam: Mucous Membranes Moist - Neck Exam Neck exam: Positive for: Normal Inspection - Respiratory Exam Respiratory Exam: Decreased Breath Sounds, Prolonged Expiratory Phase, Wheezes. absent: Accessory Muscle Use, Chest Wall Tenderness, Rales, Rhonchi, Respiratory Distress, Stridor - Cardiovascular Exam Cardiovascular Exam: Tachycardia, REGULAR RHYTHM, +S1, +S2 - GI/Abdominal Exam GI & Abdominal Exam: Normal Bowel Sounds, Soft. absent: Tenderness Additional comments: Obese abdomen - Back Exam Back exam: NORMAL INSPECTION. absent: CVA tenderness (L), CVA tenderness (R) - Neurological Exam Neurological exam: Alert, CN II-XII Intact, Normal Gait, Oriented x3, Reflexes Normal - Psychiatric Exam Psychiatric exam: Normal Affect - Skin Skin Exam: Dry, Intact, Normal Color, Warm Results - Vital Signs Recent Vital Signs: Last Vital Signs Temp 97.9 F 11/04/18 14:57 Pulse 103 H 11/04/18 14:57 Resp 22 11/04/18 16:01 BP 140/78 11/04/18 14:57 Pulse Ox 96 11/04/18 17:25 - Labs Result Diagrams: 11/04/18 16:39 11/04/18 16:39 Labs: Laboratory Results - last 24 hr 11/04/18 11/04/18 11/04/18 16:39 16:39 16:54 WBC 16.6 H D RBC 5.02 Hgb 14.2 Hct 43.3 MCV 86.3 MCH 28.2 MCHC 32.7 L RDW 15.4 H Plt Count 278 MPV 10.1 Neut % (Auto) 91.3 H Lymph % (Auto) 5.7 L Vance % (Auto) 2.7 Eos % (Auto) 0.0 Baso % (Auto) 0.3 Neut # (Auto) 15.1 H Lymph # (Auto) 0.9 L Vance # (Auto) 0.5 Eos # (Auto) 0.0 Baso # (Auto) 0.1 Sodium 138 Potassium 4.5 Chloride 101 Carbon Dioxide 24 Anion Gap 18 BUN 14 Creatinine 0.6 L Est GFR ( Amer) > 60 Est GFR (Non-Af Amer) > 60 Random Glucose 405 H* D Calcium 9.4 Total Bilirubin 0.3 AST 28 ALT 31 Alkaline Phosphatase 97 Total Protein 7.5 Albumin 4.1 Globulin 3.4 Albumin/Globulin Ratio 1.2 Influenza Typ A,B (EIA) Negative for flu a/b Assessment & Plan - Assessment and Plan (Free Text) Assessment: A/P: 62 y/o F with PMH of COPD, Asthma, GERD, IDDM-II, Migraine, seizure disorder and cerebral aneurism admitted to [facility] for eval and treatment of COPD exacerbation and hyperglycemia. Dyspnea, 2/2 Acute COPD exacerbation - S/p Duoneb x 2, and S/p Methylpred 125mg IV - CXR: No active disease - START Duoneb Q4H PRINCESS - START Methylpred 40mg IV BID - C/w home meds: Advair Q12H, Spiriva daily, Singular 10mg HS - Consider Pulmonary COnsult in morning - Keep O2 sat above 92 %, NC 2L PRN Uncontrolled IDDM-II, likely 2/2 steroid use - C/w Home inulin: Levemir 64 U SC HS, Januvia 100mg PO daily, Glipizide 5mg PO daily - Sliding Scale insulin - Hypoglycemic protocol - AccuChecks ACHS Hypertension - Chronic, Controlled - C/w Home meds: Losartan 50mg PO daily GERD - Protonic 40mg PO daily DVT PPX - Lovenox 40mg SC daily
[2018-11-04] MEDS ORDERED: Albuterol HFA 90 mcg/actuation (8 g) IH PRN (18:52)
[2018-11-04] MEDS ORDERED: Insulin Regular 100 units/ml ONE (19:29)
[2018-11-04] MEDS ORDERED: Albuterol-Ipratrop 3 mg / 0.5 (3 ml) UD INH SCH ×2 (20:00→22:00)
[2018-11-04 20:21] LABS: HDL CHOLESTEROL 59 MG/DL (30-70)
[2018-11-04 20:25] LABS: BANDS 2 % (0-2); HYPOCHROMIC SLIGHT; LYMPHOCYTE 7 % (20-50); MONOCYTE 3 % (0-10); NEUTROPHIL 88 % (42-75); PLATELET ESTIMATE NORMAL (NORMAL); TOTAL CELLS COUNTED 100; TOXIC GRANULATION PRESENT
[2018-11-04 20:32] LABS: LDL CHOLESTEROL 75 mg/dL (0-129)
[2018-11-04] MEDS: Fluticasone-Salmeterol 500-50mcg Diskus IH SCH (21:10)
[2018-11-04] MEDS: Insulin Detemir 100 Units/ml Inj SC SCH (22:37)
[2018-11-04] MEDS: Insulin Lispro (humaLOG) 100 Units/ml Inj SC SCH (23:21)
[2018-11-05 00:02] VITALS: BMI 34.5
[2018-11-05] MEDS: Albuterol-Ipratrop 3 mg / 0.5 (3 ml) UD INH SCH ×5 (02:08→19:00)
[2018-11-05] MEDS ORDERED: Insulin Lispro (humaLOG) 100 Units/ml Inj SC STA (06:38)
[2018-11-05 06:52] LABS: BASO % 0.2 % (0.0-2.0); HEMOGLOBIN 12.6 g/dL (12.0-16.0); LYMPH % 6.3 % (20.0-40.0); MEAN CELL VOLUME 86.2 fl (81.0-99.0); MEAN CORPUSCULAR HEMOGLOBIN 28.4 pg (27.0-31.0); MEAN CORPUSCULAR HGB CONC 32.9 g/dL (33.0-37.0); MEAN PLATELET VOLUME 10.1 fl (7.2-11.7); MONO # 0.6 K/uL (0.0-0.8); MONO % 4.1 % (0.0-10.0); NEUT # 13.8 K/uL (1.8-7.0); NEUT % 89.4 % (50.0-75.0); NRBC % 0.1 % (0.0-0.0); RBC 4.44 Mil/uL (3.80-5.20); RED CELL DISTRIBUTION WIDTH 15.1 % (11.5-14.5); WHITE BLOOD COUNT 15.5 K/uL (4.8-10.8)
[2018-11-05] MEDS: Insulin Lispro (humaLOG) 100 Units/ml Inj SC SCH ×4 (07:00→23:00)
[2018-11-05 07:11] LABS: BLOOD UREA NITROGEN 14 mg/dl (7-17); GFR NON-AFRICAN AMERICAN > 60
[2018-11-05 07:12] LABS: CALCIUM 9.2 mg/dL (8.4-10.2)
[2018-11-05] MEDS ORDERED: methylPREDNISolone 40 MG in Sodium Chloride 0.9% 50 ML IVPB SCH ×2 (09:00→17:00)
[2018-11-05] MEDS ORDERED: MethylPREDNISolone 40 mg Vial IVP SCH (09:00)
[2018-11-05] MEDS: Fluticasone-Salmeterol 500-50mcg Diskus IH SCH ×2 (10:37→21:08)
[2018-11-05] MEDS: GlipiZIDE 5 mg SR Tab PO SCH (10:38)
[2018-11-05] MEDS: Pantoprazole 40 mg EC Tab PO SCH (10:38)
[2018-11-05] MEDS: Tiotropium 18 mcg Cap For Inhalation IH SCH (10:38)
--- NOTE | 2018-11-05 11:37 | CARD ---
APPROVED REPORT Date of service: 11/04/2018 EKG Measurement Heart [id number] <Conclusion> Sinus tachycardia Otherwise normal ECG
--- NOTE | 2018-11-05 13:27 | CP.PCM.PN ---
Subjective - Date & Time of Evaluation Date of Evaluation: 11/05/18 Time of Evaluation: 13:26 - Subjective Subjective: Patient seen and examined bedside. No new complaints other than persistent cough, reports feeling better today than on admission. Denies fever, hemoptysis, chills, change in vision, palpitations, new-onset edema, nausea and vomiting. Objective - Vital Signs/Intake and Output Vital Signs (last 24 hours): Temp Pulse Resp BP Pulse Ox 97.6 F 95 H 20 131/76 95 11/05/18 08:33 11/05/18 10:37 11/05/18 08:33 11/05/18 10:37 11/05/18 08:33 - Medications Medications: Current Medications Albuterol (Ventolin Hfa 90 Mcg/Actuation (8 G)) 2 puff IH Q6 PRN PRN Reason: Shortness of Breath Albuterol/Ipratropium (Duoneb 3 Mg/0.5 Mg (3 Ml) Ud) 3 ml INH RQ6 [facility] Last Admin: 11/05/18 13:01 Dose: 3 ml Atorvastatin Calcium (Lipitor) 20 mg PO HS [facility] Last Admin: 11/04/18 21:10 Dose: 20 mg Dextrose (Dextrose 50% Inj) 0 ml IV STAT PRN; Protocol PRN Reason: Hypoglycemia Protocol Dextrose (Glutose 15) 0 gm PO ONCE PRN; Protocol PRN Reason: Hypoglycemia Protocol Enoxaparin Sodium (Lovenox) 40 mg SC DAILY [facility]; Protocol Glipizide (Glucotrol Xl) 5 mg PO DAILY [facility] Last Admin: 11/05/18 10:38 Dose: 5 mg Glucagon (Glucagen Diagnostic Kit) 0 mg IM STAT PRN; Protocol PRN Reason: Hypoglycemia Protocol Guaifenesin/Dextromethorphan (Robitussin Dm) 10 ml PO Q4 PRN PRN Reason: Cough Insulin Detemir (Levemir) 64 units SC HS [facility] Last Admin: 11/04/18 22:37 Dose: 64 units Insulin Human Lispro (Humalog) 0 units SC [facility]; Protocol Last Admin: 11/05/18 07:00 Dose: Not Given Losartan Potassium (Cozaar) 50 mg PO DAILY [facility] Last Admin: 11/05/18 10:37 Dose: 50 mg Methylprednisolone (Solu-Medrol) 40 mg IVP Q12 [facility] Last Admin: 11/05/18 10:58 Dose: 40 mg Montelukast Sodium (Singulair) 10 mg PO HS [facility] Last Admin: 11/04/18 21:10 Dose: 10 mg Nicotine (Nicoderm Cq) 1 patch TD DAILY [facility] Last Admin: 11/05/18 10:36 Dose: 1 patch Nortriptyline HCl (Pamelor) 50 mg PO HS [facility] Last Admin: 11/04/18 21:10 Dose: 50 mg Ondansetron HCl (Zofran Inj) 4 mg IVP Q6 PRN PRN Reason: Nausea/Vomiting Pantoprazole Sodium (Protonix Ec Tab) 40 mg PO DAILY [facility] Last Admin: 11/05/18 10:38 Dose: 40 mg Fluticasone/Salmeterol (Advair Diskus 500/50) 1 puff IH Q12 [facility] Last Admin: 11/05/18 10:37 Dose: 1 puff Sitagliptin Phosphate (Januvia) 100 mg PO DAILY [facility] Last Admin: 11/05/18 10:38 Dose: 100 mg Tiotropium [place] (Spiriva) 18 mcg IH DAILY [facility] Last Admin: 11/05/18 10:38 Dose: 18 mcg - Labs Labs: 11/05/18 05:45 11/05/18 05:45 - Constitutional Appears: No Acute Distress - Head Exam Head Exam: NORMAL INSPECTION - Eye Exam Eye Exam: Normal appearance - ENT Exam ENT Exam: Mucous Membranes Moist - Respiratory Exam Respiratory Exam: Decreased Breath Sounds, Prolonged Expiratory Phase, Wheezes. absent: Respiratory Distress - Neurological Exam Neurological Exam: Alert, Awake, Normal Gait, Oriented x3 - Psychiatric Exam Psychiatric exam: Normal Affect, Normal Mood - Skin Skin Exam: Dry, Intact, Normal Color, Warm Assessment and Plan - Assessment and Plan (Free Text) Assessment: 62 y/o F with PMH of COPD, Asthma, GERD, IDDM-II, Migraine, seizure disorder and cerebral aneurism admitted to [facility] for eval and treatment of COPD exacerbation and hyperglycemia. Plan: Dyspnea, 2/2 Acute COPD exacerbation - S/p Duoneb x 2, and S/p Methylpred 125mg IV - CXR: No active disease - Duoneb Q4H [facility] - Methylpred 40mg IV BID - C/w home meds: Advair Q12H, Spiriva daily, Singular 10mg HS - Pulmonary Consult in morning - Keep O2 sat above 92 %, NC 2L PRN Persistent cough - Robitussin DM 10 ml Q4 PRN Uncontrolled IDDM-II, likely 2/2 steroid use - C/w Home inulin: Levemir 64 U SC HS, Januvia 100mg PO daily, Glipizide 5mg PO daily - Sliding Scale insulin - Hypoglycemic protocol - AccuChecks ACHS Hypertension - Chronic, Controlled - C/w Home meds: Losartan 50mg PO daily - BP range today 130's/70's GERD - Protonic 40mg PO daily Smoking Cessation -Resume home routine - Nicoderm patch 14 DVT PPX - Lovenox 40mg SC daily
[2018-11-05] MEDS: guaiFENesin DM 200 mg-20 mg/10 ml UD PO PRN ×2 (14:01→20:24)
[2018-11-05] MEDS: Enoxaparin 40 mg Syringe SC SCH (18:31)
[2018-11-05] MEDS: MethylPREDNISolone 40 mg Vial IVP SCH ×2 (18:32→21:09)
[2018-11-05] MEDS: Insulin Detemir 100 Units/ml Inj SC SCH (21:32)
[2018-11-06] MEDS: Albuterol-Ipratrop 3 mg / 0.5 (3 ml) UD INH SCH ×7 (00:10→23:54)
[2018-11-06] MEDS: MethylPREDNISolone 40 mg Vial IVP SCH ×3 (04:04→16:17)
[2018-11-06 06:44] LABS: BLOOD UREA NITROGEN 17 mg/dl (7-17); CALCIUM 9.5 mg/dL (8.4-10.2); GFR NON-AFRICAN AMERICAN > 60
[2018-11-06 06:46] LABS: HEMOGLOBIN 13.4 g/dL (12.0-16.0); MEAN CELL VOLUME 86.4 fl (81.0-99.0); MEAN CORPUSCULAR HEMOGLOBIN 28.1 pg (27.0-31.0); MEAN CORPUSCULAR HGB CONC 32.6 g/dL (33.0-37.0); RBC 4.75 Mil/uL (3.80-5.20); RED CELL DISTRIBUTION WIDTH 15.1 % (11.5-14.5); WHITE BLOOD COUNT 14.8 K/uL (4.8-10.8)
[2018-11-06] MEDS: guaiFENesin DM 200 mg-20 mg/10 ml UD PO PRN ×2 (09:37→16:17)
[2018-11-06] MEDS: Fluticasone-Salmeterol 500-50mcg Diskus IH SCH ×2 (09:40→21:32)
[2018-11-06] MEDS: Enoxaparin 40 mg Syringe SC SCH (09:41)
[2018-11-06] MEDS: Pantoprazole 40 mg EC Tab PO SCH (09:41)
[2018-11-06] MEDS: Tiotropium 18 mcg Cap For Inhalation IH SCH (09:42)
[2018-11-06] MEDS: Insulin Lispro (humaLOG) 100 Units/ml Inj SC SCH ×4 (09:43→22:07)
[2018-11-06] MEDS: GlipiZIDE 5 mg SR Tab PO SCH (09:45)
--- NOTE | 2018-11-06 12:20 | CP.PCM.PN ---
Subjective - Date & Time of Evaluation Date of Evaluation: 11/06/18 Time of Evaluation: 12:17 - Subjective Subjective: Patient seen and examined bedside sitting upright in bed. She reports less difficulty breathing, congestion and "face bloating" than yesterday but increased jitteriness. Mild sputum, yellow in nature as per patient but unable to produce bedside. No new complaints other than constipation of two days duration. Concerned because she needs a new home glucometer devin. Denies fever, hemoptysis, chills, change in vision, palpitations, new-onset edema, nausea and vomiting. Objective - Vital Signs/Intake and Output Vital Signs (last 24 hours): Temp Pulse Resp BP Pulse Ox 98.1 F 79 19 133/79 98 11/06/18 07:33 11/06/18 09:45 11/06/18 07:33 11/06/18 09:45 11/06/18 07:33 - Medications Medications: Current Medications Acetaminophen (Tylenol 325mg Tab) 650 mg PO Q6 PRN PRN Reason: Headache Last Admin: 11/06/18 10:04 Dose: 650 mg Albuterol (Ventolin Hfa 90 Mcg/Actuation (8 G)) 2 puff IH Q6 PRN PRN Reason: Shortness of Breath Albuterol/Ipratropium (Duoneb 3 Mg/0.5 Mg (3 Ml) Ud) 3 ml INH RQ4 [facility] Last Admin: 11/06/18 11:30 Dose: 3 ml Atorvastatin Calcium (Lipitor) 20 mg PO HS [facility] Last Admin: 11/05/18 21:08 Dose: 20 mg Dextrose (Dextrose 50% Inj) 0 ml IV STAT PRN; Protocol PRN Reason: Hypoglycemia Protocol Dextrose (Glutose 15) 0 gm PO ONCE PRN; Protocol PRN Reason: Hypoglycemia Protocol Docusate Sodium (Colace) 100 mg PO BID [facility] Docusate Sodium (Colace) 100 mg PO ONCE ONE Stop: 11/06/18 12:17 Enoxaparin Sodium (Lovenox) 40 mg SC DAILY [facility]; Protocol Last Admin: 11/06/18 09:41 Dose: 40 mg Glipizide (Glucotrol Xl) 5 mg PO DAILY [facility] Last Admin: 11/06/18 09:45 Dose: 5 mg Glucagon (Glucagen Diagnostic Kit) 0 mg IM STAT PRN; Protocol PRN Reason: Hypoglycemia Protocol Guaifenesin/Dextromethorphan (Robitussin Dm) 10 ml PO Q4 PRN PRN Reason: Cough Last Admin: 11/06/18 09:37 Dose: 10 ml Insulin Detemir (Levemir) 64 units SC [facility] Last Admin: 11/05/18 21:32 Dose: 64 units Insulin Human Lispro (Humalog) 0 units SC [facility]; Protocol Last Admin: 11/06/18 09:43 Dose: 8 units Losartan Potassium (Cozaar) 50 mg PO DAILY [facility] Last Admin: 11/06/18 09:45 Dose: 50 mg Methylprednisolone (Solu-Medrol) 40 mg IVP Q6 [facility] Last Admin: 11/06/18 09:42 Dose: 40 mg Montelukast Sodium (Singulair) 10 mg PO [facility] Last Admin: 11/05/18 21:09 Dose: 10 mg Nicotine (Nicoderm Cq) 1 patch TD DAILY [facility] Last Admin: 11/06/18 09:42 Dose: 1 patch Nortriptyline HCl (Pamelor) 50 mg PO [facility] Last Admin: 11/05/18 21:08 Dose: 50 mg Ondansetron HCl (Zofran Inj) 4 mg IVP Q6 PRN PRN Reason: Nausea/Vomiting Pantoprazole Sodium (Protonix Ec Tab) 40 mg PO DAILY [facility] Last Admin: 11/06/18 09:41 Dose: 40 mg Fluticasone/Salmeterol (Advair Diskus 500/50) 1 puff IH Q12 [facility] Last Admin: 11/06/18 09:40 Dose: 1 puff Sitagliptin Phosphate (Januvia) 100 mg PO DAILY [facility] Last Admin: 11/06/18 09:43 Dose: 100 mg Tiotropium [place] (Spiriva) 18 mcg IH DAILY [facility] Last Admin: 11/06/18 09:42 Dose: 18 mcg - Labs Labs: 11/06/18 06:15 11/06/18 06:15 - Constitutional Appears: Non-toxic, No Acute Distress - Head Exam Head Exam: NORMAL INSPECTION - Eye Exam Eye Exam: Normal appearance - ENT Exam ENT Exam: Mucous Membranes Moist - Respiratory Exam Respiratory Exam: NORMAL BREATHING PATTERN Additional comments: lungs improved from yesterday, improved breath sounds and decreased wheezing - Cardiovascular Exam Cardiovascular Exam: REGULAR RHYTHM - GI/Abdominal Exam GI & Abdominal Exam: Soft. absent: Tenderness - Extremities Exam Extremities Exam: Normal Inspection - Neurological Exam Neurological Exam: Alert, Awake, Normal Gait, Oriented x3 - Psychiatric Exam Psychiatric exam: Normal Affect, Normal Mood - Skin Skin Exam: Dry, Intact, Normal Color, Warm Assessment and Plan - Assessment and Plan (Free Text) Assessment: 62 y/o F with PMH of COPD, Asthma, GERD, IDDM-II, Migraine, seizure disorder and cerebral aneurism admitted to [facility] for eval and treatment of COPD exacerbation and hyperglycemia. Plan: Dyspnea, 2/2 Acute COPD exacerbation - S/p Duoneb x 2, and S/p Methylpred 125mg IV in ED - CXR: No active disease - Duoneb Q4H [facility] - Methylpred 40mg IV Q6H - C/w home meds: Advair Q12H, Spiriva daily, Singular 10mg HS - Keep O2 sat above 92 %, NC 2L PRN - Patient improving, hold on antibiotics for now Persistent cough - Robitussin DM 10 ml Q4 PRN Uncontrolled IDDM-II, likely 2/2 steroid use - C/w Home inulin: Levemir 64 U SC HS, Januvia 100mg PO daily, Glipizide 5mg PO daily - Sliding Scale insulin, treat with sliding scale only glucose >199 - Hypoglycemic protocol - AccJennifer DENNEYS Hypertension - Chronic, Controlled - C/w Home meds: Losartan 50mg PO daily - BP range 130's/70's Constipation -Colace 100mg BID [facility]ER[facility] - Protonic 40mg PO daily Smoking Cessation -Resume home routine - Nicoderm patch 14 DVT PPX - Lovenox 40mg SC daily
[2018-11-06] MEDS ORDERED: levoFLOXacin 750 MG TAB PO SCH ×2 (14:30→15:30)
[2018-11-06] MEDS ORDERED: Sodium Chloride 3% for Inhalation 4 ML VIAL.NEB IH PRN (15:18)
[2018-11-06 16:07] VITALS: RESP 20
[2018-11-06] MEDS: Insulin Detemir 100 Units/ml Inj SC SCH (21:32)
[2018-11-07] MEDS: MethylPREDNISolone 40 mg Vial IVP SCH ×2 (01:09→09:43)
[2018-11-07] MEDS: Albuterol-Ipratrop 3 mg / 0.5 (3 ml) UD INH SCH ×3 (03:34→11:28)
[2018-11-07 07:44] LABS: HEMOGLOBIN 13.7 g/dL (12.0-16.0); MEAN CELL VOLUME 86.8 fl (81.0-99.0); MEAN CORPUSCULAR HEMOGLOBIN 28.4 pg (27.0-31.0); MEAN CORPUSCULAR HGB CONC 32.8 g/dL (33.0-37.0); RBC 4.81 Mil/uL (3.80-5.20); RED CELL DISTRIBUTION WIDTH 15.1 % (11.5-14.5); WHITE BLOOD COUNT 15.6 K/uL (4.8-10.8)
[2018-11-07 07:56] VITALS: BP 150/84; PULSE 92; TEMP 97.6; O2SAT 93
[2018-11-07 08:06] LABS: BLOOD UREA NITROGEN 20 mg/dl (7-17); CALCIUM 9.6 mg/dL (8.4-10.2); GFR NON-AFRICAN AMERICAN > 60
[2018-11-07] MEDS: Fluticasone-Salmeterol 500-50mcg Diskus IH SCH (09:37)
[2018-11-07] MEDS: GlipiZIDE 5 mg SR Tab PO SCH (09:40)
[2018-11-07] MEDS: Insulin Lispro (humaLOG) 100 Units/ml Inj SC SCH ×2 (09:41→13:11)
[2018-11-07] MEDS: Enoxaparin 40 mg Syringe SC SCH (09:42)
[2018-11-07] MEDS: Pantoprazole 40 mg EC Tab PO SCH (09:43)
[2018-11-07] MEDS: Tiotropium 18 mcg Cap For Inhalation IH SCH ×2 (09:45→09:48)
--- NOTE | 2018-11-07 12:16 | CP.PCM.PN ---
Subjective - Date & Time of Evaluation Date of Evaluation: 11/07/18 Time of Evaluation: 12:15 - Subjective Subjective: Patient seen and examined bedside lying comfortably in bed. She reports more chest tightness than yesterday. Still complains of cough however robitussin is providing relief. She requests nystatin mouthwash which is a home medication (verified). Denies fever, hemoptysis, chills, change in vision, palpitations, new-onset edema, nausea and vomiting. Objective - Vital Signs/Intake and Output Vital Signs (last 24 hours): Temp Pulse Resp BP Pulse Ox 97.6 F 92 H 20 150/84 93 L 11/07/18 07:55 11/07/18 09:39 11/07/18 07:55 11/07/18 09:39 11/07/18 07:55 - Medications Medications: Current Medications Acetaminophen (Tylenol 325mg Tab) 650 mg PO Q6 PRN PRN Reason: Headache Last Admin: 11/07/18 10:01 Dose: 650 mg Albuterol (Ventolin Hfa 90 Mcg/Actuation (8 G)) 2 puff IH Q6 PRN PRN Reason: Shortness of Breath Albuterol/Ipratropium (Duoneb 3 Mg/0.5 Mg (3 Ml) Ud) 3 ml INH RQ4 [facility] Last Admin: 11/07/18 11:28 Dose: 3 ml Atorvastatin Calcium (Lipitor) 20 mg PO HS [facility] Last Admin: 11/06/18 21:32 Dose: 20 mg Azithromycin (Zithromax) 500 mg PO DAILY [facility]; Protocol Last Admin: 11/07/18 09:45 Dose: 500 mg Benzonatate (Tessalon Perles) 100 mg PO Q8 PRN PRN Reason: Cough Last Admin: 11/06/18 16:17 Dose: 100 mg Dextrose (Dextrose 50% Inj) 0 ml IV STAT PRN; Protocol PRN Reason: Hypoglycemia Protocol Dextrose (Glutose 15) 0 gm PO ONCE PRN; Protocol PRN Reason: Hypoglycemia Protocol Docusate Sodium (Colace) 100 mg PO BID [facility] Last Admin: 11/07/18 09:38 Dose: 100 mg Enoxaparin Sodium (Lovenox) 40 mg SC DAILY [facility]; Protocol Last Admin: 11/07/18 09:42 Dose: 40 mg Glipizide (Glucotrol Xl) 5 mg PO DAILY [facility] Last Admin: 11/07/18 09:40 Dose: 5 mg Glucagon (Glucagen Diagnostic Kit) 0 mg IM STAT PRN; Protocol PRN Reason: Hypoglycemia Protocol Guaifenesin/Dextromethorphan (Robitussin Dm) 10 ml PO Q4 PRN PRN Reason: Cough Last Admin: 11/06/18 16:17 Dose: 10 ml Insulin Detemir (Levemir) 64 units SC HS [facility] Last Admin: 11/06/18 21:32 Dose: 64 units Insulin Human Lispro (Humalog) 0 units SC [facility]; Protocol Last Admin: 11/07/18 09:41 Dose: 6 units Losartan Potassium (Cozaar) 50 mg PO DAILY [facility] Last Admin: 11/07/18 09:39 Dose: 50 mg Methylprednisolone (Solu-Medrol) 40 mg IVP Q8 [facility] Last Admin: 11/07/18 09:43 Dose: 40 mg Montelukast Sodium (Singulair) 10 mg PO HS [facility] Last Admin: 11/06/18 21:32 Dose: 10 mg Nicotine (Nicoderm Cq) 1 patch TD DAILY [facility] Last Admin: 11/07/18 09:42 Dose: 1 patch Nortriptyline HCl (Pamelor) 50 mg PO HS [facility] Last Admin: 11/06/18 21:31 Dose: 50 mg Pantoprazole Sodium (Protonix Ec Tab) 40 mg PO DAILY [facility] Last Admin: 11/07/18 09:43 Dose: 40 mg Fluticasone/Salmeterol (Advair Diskus 500/50) 1 puff IH Q12 [facility] Last Admin: 11/07/18 09:37 Dose: 1 puff Sitagliptin Phosphate (Januvia) 100 mg PO DAILY [facility] Last Admin: 11/07/18 09:42 Dose: 100 mg Tiotropium [place] (Spiriva) 18 mcg IH DAILY [facility] Last Admin: 11/07/18 09:48 Dose: 18 mcg - Labs Labs: 11/07/18 06:51 11/07/18 06:51 - Constitutional Appears: Non-toxic, No Acute Distress - Head Exam Head Exam: NORMAL INSPECTION - Eye Exam Eye Exam: Normal appearance - ENT Exam ENT Exam: Mucous Membranes Moist - Respiratory Exam Respiratory Exam: Decreased Breath Sounds, Wheezes (improved). absent: Respiratory Distress - Cardiovascular Exam Cardiovascular Exam: REGULAR RHYTHM - GI/Abdominal Exam GI & Abdominal Exam: Soft. absent: Tenderness - Extremities Exam Extremities Exam: absent: Pedal Edema - Neurological Exam Neurological Exam: Alert, Awake, Normal Gait, Oriented x3 - Psychiatric Exam Psychiatric exam: Normal Affect, Normal Mood - Skin Skin Exam: Dry, Intact, Normal Color, Warm Assessment and Plan - Assessment and Plan (Free Text) Assessment: 62 y/o F with PMH of COPD, Asthma, GERD, IDDM-II, Migraine, seizure disorder and cerebral aneurism admitted to [facility] for eval and treatment of COPD exacerbation and hyperglycemia. Plan: Dyspnea, 2/2 Acute COPD exacerbation - S/p Duoneb x 2, and S/p Methylpred 125mg IV in ED - CXR: No active disease - Duoneb Q4H [facility] - Methylpred 40mg IV Q8H - C/w home meds: Advair Q12H, Spiriva daily, Singular 10mg HS - Keep O2 sat above 92 %, NC 2L PRN - Patient improving, hold on antibiotics for now Persistent cough - Robitussin DM 10 ml Q4 PRN Uncontrolled IDDM-II, likely 2/2 steroid use - C/w Home inulin: Levemir 64 U SC HS, Januvia 100mg PO daily, Glipizide 5mg PO daily - Sliding Scale insulin, treat with sliding scale only glucose >199 - Hypoglycemic protocol - AccuChecks ACHS Hypertension - Chronic, Controlled - C/w Home meds: Losartan 50mg PO daily - BP range 130's/70's Constipation -Colace 100mg BID GERD - Protonic 40mg PO daily Smoking Cessation -Resume home routine - Nicoderm patch 14 DVT PPX - Lovenox 40mg SC daily
--- NOTE | 2018-11-07 15:18 | CP.PCM.DIS ---
Provider - Provider Date of Admission: 11/04/18 17:18 Attending physician: Karlene Rosen MD Time Spent in preparation of Discharge (in minutes): 20 Hospital Course - Lab Results Lab Results: Micro Results 11/06/18 06:57 Sputum Induced Gram Stain - Preliminary Most Recent Lab Values WBC 15.6 K/uL (4.8-10.8) H 11/07/18 06:51 RBC 4.81 Mil/uL (3.80-5.20) 11/07/18 06:51 Hgb 13.7 g/dL (12.0-16.0) 11/07/18 06:51 Hct 41.7 % (34.0-47.0) 11/07/18 06:51 MCV 86.8 fl (81.0-99.0) 11/07/18 06:51 MCH 28.4 pg (27.0-31.0) 11/07/18 06:51 MCHC 32.8 g/dL (33.0-37.0) L 11/07/18 06:51 RDW 15.1 % (11.5-14.5) H 11/07/18 06:51 Plt Count 238 K/uL (130-400) 11/07/18 06:51 MPV 10.1 fl (7.2-11.7) 11/05/18 05:45 Neut % (Auto) 89.4 % (50.0-75.0) H 11/05/18 05:45 Lymph % (Auto) 6.3 % (20.0-40.0) L 11/05/18 05:45 [place] % (Auto) 4.1 % (0.0-10.0) 11/05/18 05:45 Eos % (Auto) 0.0 % (0.0-4.0) 11/05/18 05:45 Baso % (Auto) 0.2 % (0.0-2.0) 11/05/18 05:45 Neut # (Auto) 13.8 K/uL (1.8-7.0) H 11/05/18 05:45 Lymph # (Auto) 1.0 K/uL (1.0-4.3) 11/05/18 05:45 [place] # (Auto) 0.6 K/uL (0.0-0.8) 11/05/18 05:45 Eos # (Auto) 0.0 K/uL (0.0-0.7) 11/05/18 05:45 Baso # (Auto) 0.0 K/uL (0.0-0.2) 11/05/18 05:45 Neutrophils % (Manual) 88 % (42-75) H 11/04/18 16:39 Band Neutrophils % 2 % (0-2) 11/04/18 16:39 Lymphocytes % (Manual) 7 % (20-50) L 11/04/18 16:39 Monocytes % (Manual) 3 % (0-10) 11/04/18 16:39 Toxic Granulation Present 11/04/18 16:39 Platelet Estimate Normal (NORMAL) 11/04/18 16:39 Hypochromasia (manual) Slight 11/04/18 16:39 Sodium 139 mmol/l (132-148) 11/07/18 06:51 Potassium 4.7 MMOL/L (3.6-5.0) 11/07/18 06:51 Chloride 100 mmol/L (98-107) 11/07/18 06:51 Carbon Dioxide 30 mmol/L (22-30) 11/07/18 06:51 Anion Gap 14 (10-20) 11/07/18 06:51 BUN 20 mg/dl (7-17) H 11/07/18 06:51 Creatinine 0.7 mg/dl (0.7-1.2) 11/07/18 06:51 Est GFR ( Amer) > 60 11/07/18 06:51 Est GFR (Non-Af Amer) > 60 11/07/18 06:51 POC Glucose (mg/dL) 278 mg/dL (65-110) H 11/07/18 10:46 Random Glucose 271 mg/dL (65-105) H 11/07/18 06:51 Hemoglobin A1c 10.3 % (4.2-6.5) H 11/04/18 20:12 Calcium 9.6 mg/dL (8.4-10.2) 11/07/18 06:51 Total Bilirubin 0.3 mg/dl (0.2-1.3) 11/04/18 16:39 AST 28 U/L (14-36) 11/04/18 16:39 ALT 31 U/L (9-52) 11/04/18 16:39 Alkaline Phosphatase 97 U/L (38-126) 11/04/18 16:39 Total Protein 7.5 G/DL (6.3-8.2) 11/04/18 16:39 Albumin 4.1 g/dL (3.5-5.0) 11/04/18 16:39 Globulin 3.4 gm/dL (2.2-3.9) 11/04/18 16:39 Albumin/Globulin Ratio 1.2 (1.0-2.1) 11/04/18 16:39 Triglycerides 204 mg/DL (0-149) H D 11/04/18 20:12 Cholesterol 161 mg/dL (0-199) 11/04/18 20:12 LDL Cholesterol Direct 75 mg/dL (0-129) 11/04/18 20:12 HDL Cholesterol 59 MG/DL (30-70) 11/04/18 20:12 Influenza Typ A,B (EIA) Negative for flu a/b (NEGATIVE) 11/04/18 16:54 - Hospital Course Hospital Course: 62 y/o F with PMH of COPD, Asthma, GERD, IDDM-II, Migraine, seizure disorder and cerebral aneurism admitted to [facility] for eval and treatment of COPD exacerbation and hyperglycemia. Treated with Methyprednisolone 125 mg in ED followed by 40mg Q12 x1 day, Q6 x 1 day, Q8 x 1 day, DuoNeb Q4H. CXR showed no active disease. Home meds were continued throughout admission, Advair Q12H, Spiriva daily, Singular 10mg HS, and Losartan 50mg PO daily, and Losartan 50mg PO daily. DMII controlled with home insulin and sliding scale coverage. Patient's respiration improved - minimally wheezing, no accessory muscle use, did not require oxygen, was able to hold conversation without gasping for air and overall felt well enough to go home. Recommend folowup with Dr Rosen at previously scheduled apt 11/19/18. Prednisone and azithromycin RX sent and patient will resume all home meds as ordered. Discharge Exam - Head Exam Head Exam: NORMAL INSPECTION - Eye Exam Eye Exam: Normal appearance - ENT Exam ENT Exam: Mucous Membranes Moist - Respiratory Exam Respiratory Exam: Wheezes (very minimal), NORMAL BREATHING PATTERN. absent: Accessory Muscle Use, Decreased Breath Sounds, Prolonged Expiratory Phase, Respiratory Distress - Cardiovascular Exam Cardiovascular Exam: REGULAR RHYTHM - GI/Abdominal Exam GI & Abdominal Exam: Soft. absent: Tenderness - Neurological Exam Neurological exam: Alert, Normal Gait, Oriented x3 - Psychiatric Exam Psychiatric exam: Normal Affect, Normal Mood - Skin Skin Exam: Dry, Intact, Normal Color, Warm Discharge Plan - Discharge Medications Prescriptions: Azithromycin [Zithromax] 250 mg PO DAILY #5 tab Nicotine 14 mg/24 hr [Nicoderm CQ] 1 patch TD DAILY #30 patch predniSONE [Prednisone] 10 mg PO ASDIR #15 tab - Follow Up Plan Condition: FAIR Disposition: HOME/ ROUTINE Instructions: Hyperglycemia, Adult (DC), Exacerbation of COPD (DC) Additional Instructions: follow up with Dr Rosen at [facility] for scheduled apt 11/19 Referrals: Karlene Rosen MD [Family Provider] -
[2018-11-07] MEDS ORDERED: Azithromycin 500 MG in Sodium Chloride 0.9% 250 ML IVPB SCH (18:28)
== END 2018-11-07 15:35 | disposition home health service (06) | DRG 192 ==
LOC: H.ER 14:44 → H.ERHOLD 17:18 → H.MEDSURG1 20:31
PROVIDERS: ADMIT Family Medicine; ATTEND Family Medicine
PROC: 3E0F73Z Introduction of Anti-inflammatory into Respiratory Tract, Via Natural or Artificial Opening (ICD-10-PCS; principal; 2018-11-04)
DX: J44.1 Chronic obstructive pulmonary disease with (acute) exacerbation (principal); E09.65 Drug or chemical induced diabetes mellitus with hyperglycemia; T38.0X5A Adverse effect of glucocorticoids and synthetic analogues, initial encounter; G40.909 Epilepsy, unspecified, not intractable, without status epilepticus; G43.909 Migraine, unspecified, not intractable, without status migrainosus; D72.828 Other elevated white blood cell count; K21.9 Gastro-esophageal reflux disease without esophagitis; I10 Essential (primary) hypertension; E78.00 Pure hypercholesterolemia, unspecified; E66.9 Obesity, unspecified; Z68.34 Body mass index [BMI] 34.0-34.9, adult; K59.00 Constipation, unspecified; F41.9 Anxiety disorder, unspecified; K29.70 Gastritis, unspecified, without bleeding; G50.0 Trigeminal neuralgia; Z79.51 Long term (current) use of inhaled steroids; Z79.4 Long term (current) use of insulin; Z87.891 Personal history of nicotine dependence; Z86.73 Personal history of transient ischemic attack (TIA), and cerebral infarction without residual deficits; Z88.6 Allergy status to analgesic agent; Y92.9 Unspecified place or not applicable